=== PATIENT | male | born 2000 | race Caucasian/White ===

== ENCOUNTER 2020-04-02 11:50 | Emergency (ER) | payer OTHER ==
[~2020-04-02] VITALS: Ht 182.9 cm; Wt 92.0 kg
[2020-04-02] MEDS ORDERED: morphine 4 MG/ML inj SYRINge IV ONE (12:25)
[2020-04-02] MEDS ORDERED: ondansetron/PF 4mg/2ml inj IV ONE (12:25)
[2020-04-02] MEDS ORDERED: iohexol 300mg/ml 100ml inj. ONE (12:27)
[2020-04-02] MEDS ORDERED: ketorolac trometh. 30mg/ml inj. IV ONE (13:35)
[2020-04-02] MEDS ORDERED: TETanus/Pertussis (Acell)/Diphther VAC/PF (Tdap-Adult) 0.5ml syringe IMVAC ONE (13:40)
[2020-04-02] MEDS ORDERED: ACET-2615 PO (14:01)
[2020-04-02] MEDS ORDERED: IBUP-1984 PO (14:01)
[2020-04-02 14:43] VITALS: BP 122/61
== END 2020-04-02 14:46 | disposition home or self-care (01) ==
LOC: ER 11:51
DX: S50.311A Abrasion of right elbow, initial encounter (principal); S30.811A Abrasion of abdominal wall, initial encounter; Z20.3 Contact with and (suspected) exposure to rabies; Z79.899 Other long term (current) drug therapy; W13.2XXA Fall from, out of or through roof, initial encounter; Y93.89 Activity, other specified; Y92.89 Other specified places as the place of occurrence of the external cause; Y99.8 Other external cause status
CPT/HCPCS: 71260; 73120; 74177; 90471; 90715; 96374; 96375; 99285; J1885; J2270; J2405; Q9967